=== PATIENT | female | born 1980 | race Caucasian/White ===

== ENCOUNTER 2020-12-07 14:55 | Emergency (ER) | payer OTHER ==
[~2020-12-07] VITALS: Ht 157.4 cm; Wt 98.6 kg
--- NOTE | 2020-12-07 15:30 | NUR ---
[id number] Attempts to draw lab and start an IV are unsuccessful by this internal communications writer. Request Milagro to attempt.
--- NOTE | 2020-12-07 15:39 | ED General ---
General Chief Complaint: Abdominal/GI Problems Stated Complaint: ABD PAIN Source of Information: Patient, EMS History of Present Illness Date Seen by Provider: Dec 07, 2020 Time Seen by Provider: 15:11 Initial Comments 40-year-old female presenting from [facility] as an inmate. She states that she has been in halfway for the last 2 days. However for the last 5 days or more she has felt sick. She has had cough, chest pain, headache, nausea, vomiting, diarrhea, abdominal bloating and pain. She denies fever but has had subjective hot and cold flashes. She denies pain with urination but her urine has been very cloudy. She has a history of methamphetamine abuse and last used about 5 days ago. Allergies and Home Medications Allergies Coded Allergies: Penicillins (Unverified Adverse Reaction, Unknown, 12/07/20) Home Medications Naproxen 500 Mg Tablet, 500 MG PO BID Prescribed by: JOCELYNE AVILA on 12/07/201757 Ondansetron 4 Mg Tab.rapdis, 4 MG PO Q6H PRN for NAUSEA/VOMITING Prescribed by: JOCELYNE SOSART on 12/07/201757 Sulfamethoxazole/Trimethoprim 1 Each Tablet, 1 EACH PO BID Prescribed by: JOCELYNE SOSART on 12/07/201757 Patient Home Medication List Home Medication List Reviewed: Yes Review of Systems Review of Systems Constitutional: chills, fever (subjective hot flashes), malaise EENTM: No ear pain, No blurred vision, No nose congestion Respiratory: cough, short of breath Cardiovascular: chest pain (tightness) Gastrointestinal: abdominal pain (diffuse pain but feels more bloated in the lower abdomen), diarrhea, loss of appetite, nausea, vomiting Genitourinary: frequency (cloudy urine but no pain with urination) : No Musculoskeletal: other (generalized muscle and body aches) Skin: No rash Psychiatric/Neurological: Headache Past Cfamzxj-Pnkuit-Rmlebq Hx Past Med/Social Hx: Reviewed Nursing Past Med/Soc Hx Past Medical History Surgeries: Yes (removal of cancerous area on her cervix) Respiratory: No Cardiac: No Neurological: No Reproductive Disorders: Yes Female Reproductive Disorders: Ovarian Cyst Gastrointestinal: No Musculoskeletal: No Endocrine: No HEENT: No Cancer: Yes Cervical Did You Recieve Any Treatments: Yes What Type of Treatment Did You: Surgical Intervention Psychosocial: Yes (polysubstance abuse and methamphetamine abuse) Anxiety, Depression Integumentary: No Physical Exam Vital Signs Vital Signs - First Documented 12/07/20 14:55 Temp 36.5 Pulse 63 Resp 20 B/P (MAP) 160/90 (113) Pulse Ox 100 O2 Delivery Room Air Capillary Refill : Height, Weight, BMI Height: '" Weight: lbs. oz. kg; BMI Method: General Appearance: No Apparent Distress, WD/WN HEENT: PERRL/EOMI, Pharynx Normal Neck: Full Range of Motion, Normal Inspection, Non Tender, Supple Respiratory: Chest Non Tender, Lungs Clear, Normal Breath Sounds, No Accessory Muscle Use, No Respiratory Distress Cardiovascular: Regular Rate, Rhythm, Normal Peripheral Pulses Gastrointestinal: Normal Bowel Sounds, No Pulsatile Mass, Soft, Tenderness (mild diffuse tenderness to palpation) Rectal: Deferred Extremity: Normal Capillary Refill, No Pedal Edema Neurologic/Psychiatric: Alert, Oriented x3, copy supervisor II-XII Norm as Tested Skin: Normal Color, Warm/Dry Progress/Results/Core Measures Suspected Sepsis SIRS Temperature: Pulse: Respiratory Rate: Laboratory Tests 12/07/20 16:10: White Blood Count 6.9 Blood Pressure / Mean: Laboratory Tests 12/07/20 16:10: Creatinine 0.58L, Platelet Count 246, Total Bilirubin 0.4 Results/Orders Lab Results Laboratory Tests Test 12/07/20 15:25 12/07/20 16:10 Range/Units Urine Color YELLOW Urine Clarity CLOUDY Urine pH 6.0 5-9 Urine Specific Lyle 1.020 1.016-1.022 Urine Protein NEGATIVE NEGATIVE Urine Glucose (UA) NEGATIVE NEGATIVE Urine Ketones NEGATIVE NEGATIVE Urine Nitrite NEGATIVE NEGATIVE Urine Bilirubin NEGATIVE NEGATIVE Urine Urobilinogen 1.0 < = 1.0 MG/DL Urine Leukocyte Esterase NEGATIVE NEGATIVE Urine RBC (Auto) NEGATIVE NEGATIVE Urine RBC NONE /HPF Urine WBC 2-5 /HPF Urine Squamous Epithelial Cells >50 H /HPF Urine Crystals NONE /LPF Urine Bacteria LARGE H /HPF Urine Casts NONE /LPF Urine Mucus NEGATIVE /LPF Urine Culture Indicated NO White Blood Count 6.9 4.3-11.0 10^3/uL Red Blood Count 4.32 L 4.35-5.85 10^6/uL Hemoglobin 12.8 11.5-16.0 G/DL Hematocrit 40 35-52 % Mean Corpuscular Volume 92 80-99 FL Mean Corpuscular Hemoglobin 30 25-34 PG Mean Corpuscular Hemoglobin Concent 32 32-36 G/DL Red Cell Distribution Width 13.6 10.0-14.5 % Platelet Count 246 130-400 10^3/uL Mean Platelet Volume 11.0 H 7.4-10.4 FL Immature Granulocyte % (Auto) 0 % Neutrophils (%) (Auto) 63 42-75 % Lymphocytes (%) (Auto) 30 12-44 % Monocytes (%) (Auto) 6 0-12 % Eosinophils (%) (Auto) 0 0-10 % Basophils (%) (Auto) 0 0-10 % Neutrophils # (Auto) 4.3 1.8-7.8 X 10^3 Lymphocytes # (Auto) 2.0 1.0-4.0 X 10^3 Monocytes # (Auto) 0.4 0.0-1.0 X 10^3 Eosinophils # (Auto) 0.0 0.0-0.3 10^3/uL Basophils # (Auto) 0.0 0.0-0.1 10^3/uL Immature Granulocyte # (Auto) 0.0 0.0-0.1 10^3/uL Sodium Level 138 135-145 MMOL/L Potassium Level 4.0 3.6-5.0 MMOL/L Chloride Level 104 98-107 MMOL/L Carbon Dioxide Level 24 21-32 MMOL/L Anion Gap 10 5-14 MMOL/L Blood Urea Nitrogen 5 L 7-18 MG/DL Creatinine 0.58 L 0.60-1.30 MG/DL Estimat Glomerular Filtration Rate > 60 BUN/Creatinine Ratio 9 Glucose Level 97 70-105 MG/DL Calcium Level 8.9 8.5-10.1 MG/DL Corrected Calcium 9.1 8.5-10.1 MG/DL Total Bilirubin 0.4 0.1-1.0 MG/DL Aspartate Amino Transf (AST/SGOT) 16 5-34 U/L Alanine Aminotransferase (ALT/SGPT) 21 0-55 U/L Alkaline Phosphatase 98 40-136 U/L Troponin I < 0.30 <0.30 NG/ML Total Protein 7.1 6.4-8.2 GM/DL Albumin 3.7 3.2-4.5 GM/DL Lipase 16 8-78 U/L My Magaly Mckenzie - JOCELYNE AVILA MD Comprehensive Metabolic Panel (12/07/20 15:35) Lipase (12/07/20 15:35) Ua Culture If Indicated (12/07/20 15:35) Ed Iv/Invasive Line Start (12/07/20 15:35) Cbc With Automated Diff (12/07/20 15:35) Ct Abdomen/Pelvis Wo (12/07/20 15:35) Urine Bedside (12/07/20 15:35) Chest 1 View Ap/Pa Only (12/07/20 15:35) Troponin I Fs (12/07/20 15:39) Ekg Tracing (12/07/20 15:39) Ketorolac Injection (Toradol Injection) (12/07/20 17:52) Ondansetron Oral Dissolve Tab (Zofran (12/07/20 17:52) Sulfamethoxazole/Trimet Ds Tab (Bactrim (12/07/20 17:58) Vital Signs/I&O 12/07/20 12/07/20 14:55 18:09 Temp 36.5 36.5 Pulse 63 63 Resp 20 20 B/P (MAP) 160/90 (113) 160/90 (113) Pulse Ox 100 100 O2 Delivery Room Air Capillary Refill : Progress Note #1: Progress Note check labs with an EKG as well as chest x-ray and for her abdominal issues do a CT scan without contrast. Patient has a history of methamphetamine abuse and IV drug abuse her veins were scarred and it took a while to get blood on the patient for testing. Progress Note #2: Progress Note labs oare not showing any acute significant abnormality. Her chemistry, lipase, cardiac enzymes are negative. Her urinalysis did show bacteria and epithelial cells but no definite infection. Chest x-ray was clear of acute process. Her CT scan of the abdomen and pelvis demonstrated bilateral ovarian cysts with no other acute process seen. Will try treating with Toradol for pain and inflammation, Zofran for nausea, a first dose of Bactrim for the bacteria in her urine. Discharge back to halfway in stable condition and have them decide if they're going to continue these medicines or not. Prescriptions were sent with the patient for naproxen, Zofran, Bactrim. ECG Initial ECG Impression Date: Dec 07, 2020 Initial ECG Impression Time: 16:16 Initial ECG Rate: 57 Initial ECG Rhythm: Normal Sinus Initial ECG Comparisson: No Previous ECG Available Comment normal sinus rhythm with a heart rate of [address] interval [address] elevation. QT interval 416 ms with a QTc interval 405 ms. There is no prior tra cing available for comparison. Diagnostic Imaging Diagonstic Imaging: CT Plain Films/CT/US/NM/MRI: abdomen, pelvis Comments [facility], [place] NAME: MISSY FINE [facility] REC#: [id number] PT STATUS: REG ER : 1980 PHYSICIAN: JOCELYNE AVILA MD ADMIT DATE: 12/07/20/ER FS Signed Date of Exam:12/07/20 CT ABDOMEN/PELVIS WO PROCEDURE: CT abdomen and pelvis without contrast. TECHNIQUE: Multiple contiguous axial images were obtained through the abdomen and pelvis without the use of intravenous contrast. Auto Exposure Controls were utilized during the CT exam to meet ALARA standards for radiation dose reduction. DATE: December 07, 2020. COMPARISON: None. INDICATION: 40-year-old female, abdominal pain, bloating, diarrhea. Nausea. FINDINGS: There are limitations for evaluation of the abdominal organs, neoplastic processes, abscess, and limited evaluation of the vasculature relating to the lack of intravenous contrast. There is a noncalcified left lower lobe pulmonary nodule measuring 12 mm in size on axial image 19. Additional visualized portions of the lung bases are clear. The heart is not enlarged. There is no pericardial effusion. The liver is unremarkable in size and contour. The gallbladder is unremarkable. There is no intrahepatic or extrahepatic bile duct dilation. The main pancreatic duct is not abnormally dilated. Limited noncontrast evaluation of the pancreatic parenchyma is unremarkable. The spleen is normal in size. The adrenal glands are unremarkable. Unremarkable appearance of the renal parenchyma. The urinary collecting systems are not distended. There is no identified renal or ureteral stone. Urinary bladder is unremarkable in appearance. There are multiple cystic lesions in the right and left adnexa. The largest on the left measures approximately 3.1 cm in size. There is a cystic right adnexal lesion measuring 3.2 cm in size. The intestinal tract is not distended. The appendix is well-seen and normal on axial image 65 and adjacent sequential images. There is no free intraperitoneal air. There is a small fat-containing umbilical hernia. There is no drainable fluid collection. There is no free pelvic fluid. The uterus is present. CT is limited for assessment of cervical malignancy. There are mild atherosclerotic calcifications noted. There is no identified abnormally enlarged lymph node in the abdomen or pelvis meeting CT size criteria for adenopathy. There is no identified acute bony abnormality. There are mild degenerative changes of the spine. IMPRESSION: CT ABDOMEN AND PELVIS. 1. The uterus is present. CT is limited for assessment of cervical malignancy. 2. Cystic adnexal lesions bilaterally measuring up to approximately 3.2 cm in maximum size. This may relate to ovarian cyst although cannot be definitively classified on CT. 3. No definite acute abnormality in the abdomen or pelvis. Dictated by: Dictated on workstation # [id number] Dict: 12/07/20 171 Trans: 12/07/201720 CVB [id number] Interpreted by: TAMI ORONA MD Electronically signed by: TAMI ORONA MD 12/07/201720 Diagonstic Imaging: Xray Plain Films/CT/US/NM/MRI: chest Comments [facility], [place] NAME: MISSY FINE [facility] REC#: [id number] PT STATUS: REG ER : 1980 PHYSICIAN: JOCELYNE AVILA MD ADMIT DATE: 12/07/20/ER FS Signed Date of Exam:12/07/20 CHEST 1 VIEW AP/PA ONLY INDICATION: Cough. FINDINGS: Portable chest. The lungs are well-aerated and clear. Heart is not enlarged. No pulmonary edema or hilar adenopathy. No pneumothorax or pleural effusion. No bony abnormalities. IMPRESSION: Negative portable chest. Dictated by: Dictated on workstation # [id number] Dict: 12/07/20 1658 Trans: 12/07/201700 ACB [id number] Interpreted by: ELIECER PAZ MD Electronically signed by: ELIECER PAZ MD 12/07/20 170 Departure Impression Primary Impression: Ovarian cyst Qualified Codes: N83.201 - Unspecified ovarian cyst, right side; N83.202 - Unspecified ovarian cyst, left side Additional Impressions: Cough Nausea vomiting and diarrhea Viral syndrome Bacteria in urine Disposition: 01 HOME, SELF-CARE Condition: Stable Departure-Patient Inst. Decision time for Depature: 17:58 Referrals: NO,LOCAL PHYSICIAN (PCP) Primary Care Physician [facility] Patient Instructions: Ovarian Cyst ED, Nausea and Vomiting, Adult ED, Diarrhea, Adult ED, Cough, Adult ED, Viral Syndrome (DC) Add. Discharge Instructions: Stay well hydrated. Use the nausea medicine to help settle your stomach. Use the Naproxen to help with ovarian cyst pain/discomfort Take the course of antibiotics for bacteria in your urine. Check with clinic if not improving. All discharge instructions reviewed with patient and/or family. Voiced understanding. Scripts Naproxen (Naprosyn) 500 Mg Tablet 500 MG PO BID for ovarian cyst pain for 10 Days, #20 TAB 0 Refills Prov: JOCELYNE AVILA MD 12/07/20 Sulfamethoxazole/Trimethoprim (Bactrim Ds Tablet) 1 Each Tablet 1 EACH PO BID for bacteria in urine for 7 Days, #14 TAB 0 Refills Prov: JOCELYNE AVILA MD 12/07/20 Ondansetron (Ondansetron Odt) 4 Mg Tab.rapdis 4 MG PO Q6H PRN for NAUSEA/VOMITING for 3 Days, #12 TAB 0 Refills Prov: JOCELYNE AVILA MD 12/07/20 JOCEYLNE AVILA MD Dec 07, 2020 15:39
--- NOTE | 2020-12-07 15:50 | NUR ---
Call to lab for assistance, Goyo Garcia advised even arterial blood stick for labs is ok'd by
--- NOTE | 2020-12-07 16:10 | NUR ---
Blood draw from right foot per Milagro BILLINGS. Pt has had 2 RN's and 1 lab housekeeping room attendant attempts at venous draws and arterial attempts. Pt has poor venous access with inability to draw venous or arterial.
[2020-12-07 16:35] LABS: BACTERIA,URINE LARGE /HPF; BILIRUBIN,URINE NEGATIVE (NEGATIVE); CLARITY,URINE CLOUDY; COLOR,URINE YELLOW; GLUCOSE, URINE (UA) NEGATIVE (NEGATIVE); KETONES,URINE NEGATIVE (NEGATIVE); LEUKOCYTE ESTERASE ,URINE NEGATIVE (NEGATIVE); NITRITE,URINE NEGATIVE (NEGATIVE); PROTEIN,URINE NEGATIVE (NEGATIVE); SQUAMOUS EPITHELIAL CELL,UR >50 /HPF
[2020-12-07 16:46] LABS: WHITE BLOOD COUNT 6.9 10^3/uL (4.3-11.0)
[2020-12-07 16:47] LABS: HEMATOCRIT 40 % (35-52); HEMOGLOBIN 12.8 G/DL (11.5-16.0); MEAN CORPUSCULAR HEMOGLOBIN 30 PG (25-34); MEAN CORPUSCULAR HGB CONC 32 G/DL (32-36); MEAN CORPUSCULAR VOLUME 92 FL (80-99); NEUTROPHILS % (AUTO) 63 % (42-75); PLATELET COUNT 246 10^3/uL (130-400)
[2020-12-07 16:48] LABS: BASOPHILS % (AUTO) 0 % (0-10); EOSINOPHILS % (AUTO) 0 % (0-10); LYMPHOCYTES % (AUTO) 30 % (12-44); MONOCYTES # (AUTO) 0.4 X 10^3 (0.0-1.0); MONOCYTES % (AUTO) 6 % (0-12); NEUTROPHILS # (AUTO) 4.3 X 10^3 (1.8-7.8)
--- NOTE | 2020-12-07 17:00 | Diagnostic Imaging Report ---
INDICATION: Cough. FINDINGS: Portable chest. The lungs are well-aerated and clear. Heart is not enlarged. No pulmonary edema or hilar adenopathy. No pneumothorax or pleural effusion. No bony abnormalities. IMPRESSION: Negative portable chest. Dictated by: Dictated on workstation # [id number]
--- NOTE | 2020-12-07 17:21 | Diagnostic Imaging Report ---
PROCEDURE: CT abdomen and pelvis without contrast. TECHNIQUE: Multiple contiguous axial images were obtained through the abdomen and pelvis without the use of intravenous contrast. Auto Exposure Controls were utilized during the CT exam to meet ALARA standards for radiation dose reduction. DATE: December 07, 2020. COMPARISON: None. INDICATION: 40-year-old female, abdominal pain, bloating, diarrhea. Nausea. FINDINGS: There are limitations for evaluation of the abdominal organs, neoplastic processes, abscess, and limited evaluation of the vasculature relating to the lack of intravenous contrast. There is a noncalcified left lower lobe pulmonary nodule measuring 12 mm in size on axial image 19. Additional visualized portions of the lung bases are clear. The heart is not enlarged. There is no pericardial effusion. The liver is unremarkable in size and contour. The gallbladder is unremarkable. There is no intrahepatic or extrahepatic bile duct dilation. The main pancreatic duct is not abnormally dilated. Limited noncontrast evaluation of the pancreatic parenchyma is unremarkable. The spleen is normal in size. The adrenal glands are unremarkable. Unremarkable appearance of the renal parenchyma. The urinary collecting systems are not distended. There is no identified renal or ureteral stone. Urinary bladder is unremarkable in appearance. There are multiple cystic lesions in the right and left adnexa. The largest on the left measures approximately 3.1 cm in size. There is a cystic right adnexal lesion measuring 3.2 cm in size. The intestinal tract is not distended. The appendix is well-seen and normal on axial image 65 and adjacent sequential images. There is no free intraperitoneal air. There is a small fat-containing umbilical hernia. There is no drainable fluid collection. There is no free pelvic fluid. The uterus is present. CT is limited for assessment of cervical malignancy. There are mild atherosclerotic calcifications noted. There is no identified abnormally enlarged lymph node in the abdomen or pelvis meeting CT size criteria for adenopathy. There is no identified acute bony abnormality. There are mild degenerative changes of the spine. IMPRESSION: CT ABDOMEN AND PELVIS. 1. The uterus is present. CT is limited for assessment of cervical malignancy. 2. Cystic adnexal lesions bilaterally measuring up to approximately 3.2 cm in maximum size. This may relate to ovarian cyst although cannot be definitively classified on CT. 3. No definite acute abnormality in the abdomen or pelvis. Dictated by: Dictated on workstation # [id number]
[2020-12-07 17:28] LABS: ALANINE AMINOTRANSFERASE 21 U/L (0-55); ALKALINE PHOSPHATASE 98 U/L (40-136); BILIRUBIN,TOTAL 0.4 MG/DL (0.1-1.0); BUN/CREATININE RATIO 9; CALCIUM 8.9 MG/DL (8.5-10.1); CARBON DIOXIDE 24 MMOL/L (21-32); CHLORIDE 104 MMOL/L (98-107); CREATININE SERUM 0.58 MG/DL (0.60-1.30); GFR ESTIMATED > 60; GLUCOSE 97 MG/DL (70-105); SODIUM 138 MMOL/L (135-145); TOTAL PROTEIN 7.1 GM/DL (6.4-8.2)
[2020-12-07 17:29] LABS: ALBUMIN 3.7 GM/DL (3.2-4.5); LIPASE 16 U/L (8-78)
[2020-12-07] MEDS ORDERED: ONDANSETRON 4 MG (ZOFRAN) ORAL DISSOLVE TAB PO STA (17:52)
[2020-12-07] MEDS ORDERED: KETOROLAC 60 MG/2 ML VIAL IM STA (17:52)
[2020-12-07] MEDS ORDERED: SULF1TAB35 PO (17:58)
[2020-12-07] MEDS ORDERED: ONDA4TAB11 PO (17:58)
[2020-12-07] MEDS ORDERED: NAPR-1071 PO (17:58)
[2020-12-07] MEDS ORDERED: TRIM/SULFAMETH 160/800 (SEPTRA DS) TAB PO STA (17:58)
[2020-12-07 18:09] VITALS: BP 160/90
--- NOTE | 2020-12-07 18:10 | NUR ---
Patient discharged per Milagro BILLINGS.
== END 2020-12-07 18:10 | disposition home or self-care (01) ==
LOC: ER FS 15:05
DX: B34.9 Viral infection, unspecified (principal); N83.209 Unspecified ovarian cyst, unspecified side; R82.71 Bacteriuria; Z85.41 Personal history of malignant neoplasm of cervix uteri; Z88.0 Allergy status to penicillin
CPT/HCPCS: 36415; 71045; 74176; 80053; 81000; 83690; 84484; 84703; 85025; 93005